=== PATIENT | female | born 1955 | race African-American/Black ===

== ENCOUNTER → 2018-06-11 | Day surgery (SDC) | payer BC ==
[~2018-06-11] MED LIST: ASPIR 8181 MG PO; ATORVASTATIN CA10 MG PO; BUPIVACAINE HCL 0.5% 10ML MPF VIAL INJ ONE; CEFAZOLIN SOD 1 GM VIAL ONE; DEXAMETHASONE SOD PHOS INJ 4 MG/ML VIAL ONE; FENTANYL CITRATE/PF 100MCG/2 ML INJ ONE; HYDROXYCHLOROQ200 MG PO; KETOROLAC TROMETHAMINE 30 MG/ML VIAL ONE; LIDOCAINE HCL 2% LOCAL INJ 5 ML SDV VIAL INJ ONE; MIDAZOLAM HCL 2 MG/2 ML VIAL ONE; ONDANSETRON HCL INJ 2 MG/ML VIAL ONE; PROPOFOL IV EMULSION 10 MG/ML 20 ML VIAL ONE; SEVOFLURANE INHAL SOLN 250 ML PEN BTL ONE; SIMVASTATIN20 MG PO; SPIRONOLACTONE50 MG PO; ZETIA10 MG PO
--- OUTSIDE RECORDS SUMMARY | 2018-06-11 07:05 | XMS REPORT ---
Author Author [facility] Address Unknown Phone Unavailable Care Team Providers Care Manager Supply Chain Planning Name Role Phone Amanda KRUGER Unavailable Unavailable Problems This patient has no known problems. Allergies, Adverse Reactions, Alerts This patient has no known allergies or adverse reactions. Medications This patient has no known medications. Encounters Start Date/Time End Date/Time Encounter Type Admission Type Attending Clinicians Care Facility Care Department Encounter ID 2017-01-31 15:33:00 2017-01-31 23:59:00 Outpatient JUAN WONG [facility] [id number]
[2018-06-11 10:40] VITALS: BP 127/69
--- NOTE | 2018-06-11 11:52 | Operative Report ---
DATE OF PROCEDURE: June 11, 2018 PREOPERATIVE DIAGNOSIS: Left 3rd trigger finger. POSTOPERATIVE DIAGNOSIS: Left 3rd trigger finger. PROCEDURE: Release of left 3rd trigger finger. INDICATIONS: The patient is a 63-year-old lady who has a left 3rd trigger finger. She has failed extensive conservative management and would like to proceed with a surgical release. The risks and benefits have been discussed. She states she understands and wishes to proceed. DESCRIPTION OF PROCEDURE: The patient was brought to the operating room and placed under general anesthetic. Her left upper extremity was prepped and draped in a sterile manner. A preoperative time out was performed. The extremity was exsanguinated, and a proximal tourniquet was briefly inflated to 250 mmHg. An incision was made in the line of the distal palmar crease corresponding to the left 3rd digit. The A1 sindhu was carefully exposed. This was released using a #15 blade surgical knife. This was completed with a pair of tenotomy scissors. The tendon was retracted from the wound and noted to have no further stenosing tenosynovitis. The wound was irrigated and closed with 2 interrupted nylon stitches. A sterile bandage was applied. She was extubated and transported to the recovery room in good condition. There was no blood loss, and all needle and sponge counts were correct. Job#: [id number]
== END | disposition home or self-care (01) ==
LOC: OR 07:03
PROVIDERS: ATTEND Specialist
DX: M65.332 Trigger finger, left middle finger (principal); M32.9 Systemic lupus erythematosus, unspecified; I12.9 Hypertensive chronic kidney disease with stage 1 through stage 4 chronic kidney disease, or unspecified chronic kidney disease; N18.9 Chronic kidney disease, unspecified; I25.2 Old myocardial infarction; Z01.810 Encounter for preprocedural cardiovascular examination; Z68.35 Body mass index [BMI] 35.0-35.9, adult
CPT/HCPCS: 26055; 93005; J0690; J1100; J1885; J2001; J2250; J2405